=== PATIENT | female | born 1940 ===

== ENCOUNTER 2018-05-12 05:58 | Emergency (ER) | payer MEDICARE, MEDICAID ==
[2018-05-12 06:22] VITALS: PULSE 86; TEMP 98; O2SAT 95
[2018-05-12] MEDS ORDERED: MethylPREDNISolone 40 mg Vial IM STA (07:20)
--- NOTE | 2018-05-12 08:15 | C.PDOC ---
History Of Present Illness CC; Neck pain. Patient with left sided neck pain started yesterday, no trauma, pain is sharp, exacerbated by movement, no numbness or tingling, pain radiates to L. hand . Time Seen by Provider: 05/12/18 07:16 Chief Complaint (Nursing): Back Pain History Per: Patient History/Exam Limitations: no limitations Onset/Duration Of Symptoms: Days (2), Gradual Current Symptoms Are (Timing): Still Present Quality Of Discomfort: Sharp, Aching Severity: Moderate Pain Scale Rating Of: 6 Previous Symptoms: Neck Pain Associated Symptoms: None. denies: Incontinence, New Weakness, New Numbness Exacerbating Factor(s): Turning, Movement Recent travel outside of the [place]: No Additional History Per: Patient Past Medical History Vital Signs: Last Vital Signs Temp 98.0 F 05/12/18 06:17 Pulse 86 05/12/18 06:17 Resp 17 05/12/18 06:17 BP 138/73 05/12/18 06:17 Pulse Ox 95 05/12/18 06:17 RIAZ Report Viewed: Yes - Medical History PMH: Arthritis, Hypercholesterolemia, Hypothyroidism Family History: States: No Known Family Hx - Social History Hx Alcohol Use: No Hx Substance Use: No - Immunization History Hx Tetanus Toxoid Vaccination: No Hx Influenza Vaccination: No Hx Pneumococcal Vaccination: No Review Of Systems Constitutional: Negative for: Fever Eyes: Negative for: Pain, Vision Change ENT: Negative for: Ear Pain Cardiovascular: Negative for: Chest Pain Respiratory: Negative for: Cough, Shortness of Breath Gastrointestinal: Negative for: Nausea, Vomiting Musculoskeletal: Positive for: Neck Pain, Hand Pain. Negative for: Arm Pain, Leg Pain Skin: Negative for: Rash Neurological: Negative for: Weakness, Numbness Physical Exam - Physical Exam Appears: Well Skin: Normal Color, Dry Head: Atraumatic, Normacephalic Eye(s): bilateral: Normal Inspection, PERRL, EOMI Ear(s): Bilateral: Normal Nose: Normal Oral Mucosa: Moist Tongue: Normal Appearing Lips: Normal Appearing Teeth: Normal Dentition Gingiva: Normal Appearing Throat: Normal Neck: Decreased ROM (due to pain, no vertebral tenderness. Muscle spasm, left.) Lymphatic: Deferred Chest: Symmetrical, No Tenderness Cardiovascular: Rhythm Regular Respiratory: Normal Breath Sounds Gastrointestinal/Abdominal: Normal Exam Back: Normal Inspection Extremity: Bilateral: Atraumatic Pulses: Left Carotid: Normal, Right Carotid: Normal, Left Brachial: Normal, Right Brachial: Normal, Left Radial: Normal, Right Radial: Normal Neurological/Psych: Oriented x3, Normal Speech, Normal Cognition, Normal Cranial Nerves, Normal Motor, Normal Sensation, Normal Reflexes Gait: Steady ED Course And Treatment O2 Sat by Pulse Oximetry: 95 Reassessment Condition: Improved (Pain is improved, patient has a to attend and asking to be d/c, will follow up with PMD for possible MRI) Disposition Counseled Patient/Family Regarding: Diagnosis, Need For Followup - Disposition Disposition: HOME/ ROUTINE Disposition Time: 08:23 Condition: STABLE Additional Instructions: FOLLOW UP WITH YOUR PMD IN 1 DAY Prescriptions: Methocarbamol [Robaxin] 500 mg PO BID 5 Days tab Naproxen [EC-Naprosyn] 500 mg PO BID 5 Days tablet. Instructions: Radiculopathy (DC) Forms: Gen Discharge Inst Korean, [facility] (Korean) - POA Present On Arrival: None - Clinical Impression Clinical Impression: Cervical radiculitis
[2018-05-12] MEDS ORDERED: MethylPREDNISolone 40 mg Vial ONE (08:38)
[2018-05-12 08:45] VITALS: BP 117/75; RESP 16
== END 2018-05-12 08:45 | disposition home or self-care (01) ==
LOC: C.ER 05:58
DX: M54.12 Radiculopathy, cervical region (principal); E78.00 Pure hypercholesterolemia, unspecified; E03.9 Hypothyroidism, unspecified
CPT/HCPCS: 96372; 99284; J1885; J2920